=== PATIENT | male | born 1975 | race Caucasian/White ===

== ENCOUNTER 2016-12-19 12:08 | Emergency (ER) | payer MEDICAID ==
[2016-12-19 12:25] VITALS: TEMP 97.9; O2SAT 100
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
[2016-12-19 14:23] VITALS: BP 112/77; PULSE 70; RESP 18
== END 2016-12-19 14:23 | disposition home or self-care (01) ==
LOC: C.ER 12:08
DX: S00.01XA Abrasion of scalp, initial encounter (principal); Y08.89XA Assault by other specified means, initial encounter

== ENCOUNTER 2017-03-02 14:20 | Emergency (ER) | payer MEDICAID ==
[2017-03-02 14:50] VITALS: BP 117/73; PULSE 66; RESP 18; TEMP 98.1; O2SAT 99
[2017-03-02] MEDS ORDERED: Bacitracin 500 Units/gm Oint Foilpak UD TOP ONE (15:07)
--- NOTE | 2017-03-02 15:08 | C.PDOC ---
History Of Present Illness 41 y/o male presents to the ED with complaints of pain and swelling to right thumb that occurred several hours ago. Pt states he fell and landed on the thumb. denies head injury, no loc. Denies weakness, numbness. No other injury. Time Seen by Provider: 03/02/17 14:49 Chief Complaint (Nursing): Finger,Hand,&Wrist History Per: Patient History/Exam Limitations: no limitations Onset/Duration Of Symptoms: Hrs Current Symptoms Are (Timing): Still Present Quality: "Pain" Severity: Moderate Recent travel outside of the [place]: No Past Medical History Reviewed: Historical Data, Nursing Documentation, Vital Signs Vital Signs: Last Vital Signs Temp 98.1 F 03/02/17 14:49 Pulse 66 03/02/17 14:49 Resp 18 03/02/17 14:49 BP 117/73 03/02/17 14:49 Pulse Ox 99 03/02/17 23:16 - Medical History PMH: Anxiety, Asthma, Sleep Apnea Family History: States: Unknown Family Hx - Social History Hx Alcohol Use: No Hx Substance Use: Yes (denies) - Immunization History Hx Tetanus Toxoid Vaccination: Yes Hx Influenza Vaccination: Yes Hx Pneumococcal Vaccination: Yes Review Of Systems Except As Marked, All Systems Reviewed And Found Negative. Musculoskeletal: Positive for: Other (right thumb pain and swelling) Neurological: Negative for: Weakness, Numbness Physical Exam - Physical Exam Appears: Non-toxic, No Acute Distress Skin: Warm, Dry Head: Atraumatic, Normacephalic Extremity: Capillary Refill (<2 seconds), No Deformity, Other (abrasion over right proximal 1st phalanx, decreased ROM due to pain) Neurological/Psych: Oriented x3, Normal Speech, Normal Motor, Normal Sensation ED Course And Treatment O2 Sat by Pulse Oximetry: 99 (RA) Pulse Ox Interpretation: Normal Medical Decision Making Medical Decision Making: no fx on xray hand splint applied. Disposition Counseled Patient/Family Regarding: Diagnosis, Need For Followup - Disposition Referrals: [facility] [Outside] [facility] [Outside] Disposition: HOME/ ROUTINE Disposition Time: 15:52 Condition: GOOD Additional Instructions: Wear thumb splint for comfort. Apply antibiotic ointment to abrasion 1-2 times a day. Tylenol or Aleve for pain. Follow up in clinic. 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 - Scribe Statement The provider has reviewed the documentation as recorded by the Scribe Cayden Quesada All medical record entries made by the Krystleibelin were at my direction and personally dictated by me. I have reviewed the chart and agree that the record accurately reflects my personal performance of the history, physical exam, medical decision making, and the department course for this patient. I have also personally directed, reviewed, and agree with the discharge instructions and disposition.
[2017-03-02] MEDS ORDERED: Tetanus/Diphtheria Toxoids 0.5 ml Syringe IM ONE (15:12)
[2017-03-02] MEDS ORDERED: Bacitracin 500 Units/gm Oint Foilpak UD ONE (15:12)
--- NOTE | 2017-03-02 16:10 | RAD ---
PROCEDURE: Right Thumb radiographs. HISTORY: right thumb pain s/p fall COMPARISON: None. TECHNIQUE: AP radiograph of the right hand, as well as spot oblique and lateral images of thumb were obtained. FINDINGS: RIGHT THUMB: Normal right thumb, without fracture or focal lesion. Remainder of the right hand (as seen on the AP view) grossly unremarkable. JOINTS: Normal. SOFT TISSUES: Normal. OTHER FINDINGS: None. IMPRESSION: Normal right thumb radiographs.
== END 2017-03-02 16:14 | disposition home or self-care (01) ==
LOC: C.ER 14:20
DX: S60.311A Abrasion of right thumb, initial encounter (principal); W18.30XA Fall on same level, unspecified, initial encounter
CPT/HCPCS: 29130; 73140; 90471; 90715; 96372; 99284; J1885

== ENCOUNTER 2017-08-07 23:38 | Emergency (ER) | payer MEDICAID ==
[2017-08-07 23:47] VITALS: BMI 23.7
[2017-08-07 23:51] VITALS: TEMP 98
[2017-08-07] MEDS ORDERED: DiphenhydrAMINE 50 mg/ml Inj IM STA (23:58)
[2017-08-08] MEDS ORDERED: DiphenhydrAMINE 50 mg/ml Inj ONE (00:06)
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
[2017-08-08 08:12] VITALS: BP 123/81; PULSE 100; RESP 12; O2SAT 96
== END 2017-08-08 08:37 | disposition home or self-care (01) ==
LOC: C.ER 23:38 → SUPCPDRO 23:38 → C.ER 08-08 08:37
DX: F19.10 Other psychoactive substance abuse, uncomplicated (principal)
CPT/HCPCS: 80324; 80345; 80346; 80349; 80353; 80358; 80361; 82948; 83992; 96372; 99285; J1200; J2060; J3486